=== PATIENT | male | born 1975 | race Two or more races ===

== ENCOUNTER 2025-08-14 16:56 | Emergency (ER) | payer MEDICARE, MEDICAID ==
[~2025-08-14] VITALS: Ht 170.2 cm; Wt 98.8 kg
[2025-08-14 16:59] VITALS: BP 143/91; PULSE 105; RESP 18; TEMP 98.1; O2SAT 99
--- NOTE | 2025-08-14 17:19 | ED.PDOC ---
History of Present Illness HPI Comments This is a 50-year-old male who presents to the ED with a chief complaint of anxiety. Patient was just discharged from the hospital hours ago. Patient notes no further complaints at this time and otherwise denies further associated symptoms of chest pain, palpitations, fever, chills, dizziness, or weakness. Chief Complaint: General Weakness Time Seen by MD: 17:10 Reviewed Notes: Medications, Allergies Allergies: Coded Allergies: NO KNOWN ALLERGIES (Unverified , 08/14/25) Information Source: Patient Mode of Arrival: Ambulatory Severity: Mild Duration: Since onset Past Medical History PAST MEDICAL HISTORY: Unknown Surgical History: Unknown Social History Smoker: Unknown Alcohol: Unknown Drugs: Unknown Lives In: Assisted Care Constitutional: denies: chills, diaphoresis, fatigue, fever, malaise, sweats, weakness, others EENTM: denies: blurred vision, double vision, ear bleeding, ear discharge, ear drainage, ear pain, ear ringing, eye pain, eye redness, hearing loss, mouth pain, mouth swelling, nasal discharge, nose bleeding, nose congestion, nose pain, photophobia, tearing, throat pain, throat swelling, voice changes, others Respiratory: denies: cough, hemoptysis, orthopnea, SOB at rest, shortness of breath, SOB with excertion, stridor, wheezing, others Cardiovascular: denies: chest pain, dizzy spells, diaphoresis, Dyspnea on exertion, edema, irregular heart beat, left arm pain, lightheadedness, palpitations, PND, syncope, others Gastrointestinal: denies: abdomen distended, abdominal pain, blood streaked bowels, constipated, diarrhea, dysphagia, difficulty swallowing, hematemesis, melena, nausea, poor appetite, poor fluid intake, rectal bleeding, rectal pain, vomiting, others Genitourinary: denies: burning, dysuria, flank pain, frequency, hematuria, incontinence, penile discharge, penile sore, pain, testicle pain, testicle swelling, urgency, others Neurological: denies: dizziness, fainting, headache, left sided numbness, left sided weakness, numbness, paresthesia, pre-existing deficit, right sided numbness, right sided weakness, seizure, speech problems, tingling, tremors, weakness, others Musculoskeletal: denies: back pain, gout, joint pain, joint swelling, muscle pain, muscle stiffness, neck pain, others Integumetry: denies: bruises, change in color, change in hair/nails, dryness, laceration, lesions, lumps, rash, wounds, others Allergic/Immunocompromised: denies: Difficulty Healing, Frequent Infections, Hives, Itching, others Hematologic/Lymphatic: denies: anemia, blood clots, easy bleeding, easy bruising, swollen glands, others Endocrine: denies: excessive hunger, excessive sweating, excessive thirst, excessive urination, flushing, intolerance to cold, intolerance to heat, unexplained weight gain, unexplained weight loss, others Psychiatric: reports: anxiety; denies: bipolar disorder, depression, hopeless, panic disorder, schizophrenia, sleepless, suicidal, others All Other Systems: Reviewed and Negative Physical Exam General Appearance: Moderate Distress HEENT: Normal ENT Inspection, Pharynx Normal, TMs Normal Neck: Full Range of Motion, Non-Tender, Normal, Normal Inspection Respiratory: Chest Non-Tender, Lungs Clear, No Accessory Muscle Use, No Respiratory Distress, Normal Breath Sounds Cardiovascular: No Edema, No JVD, No Murmur, No Gallop, Normal Peripheral Pulses, Regular Rate/Rhythm Breast Exam: Deferred Gastrointestinal: No Organomegaly, Non Tender, No Pulsatile Mass, Normal Bowel Sounds, Soft Genitalia: Deferred Pelvic: Deferred Rectal: Deferred Extremities: No calf tenderness, Normal capillary refill, Normal inspection, Normal range of motion, Non-tender, No pedal edema Musculoskeletal : Apperance: Normal Neurologic: Alert, patrol sergeant II-XII nml as Tested, No Motor Deficits, Normal Affect, Normal Mood, No Sensory Deficits Cerebellar Function: Normal Reflexes: Normal Skin: Dry, Normal Color, Warm Peripheral Pulses: 3+ Radial (R), 3+ Radial (L) Lymphatic: No Adenopathy Was a procedure done? Was a procedure done?: No Differential Dx Considerations may include: Anxiety X-Ray, Labs, Meds, VS Vital Signs Date Time Temp Pulse Resp B/P (MAP) Pulse Ox O2 Delivery O2 Flow Rate FiO2 08/14/25 16:59 98.1 105 18 143/91 99 98.1 Patient alert. He is anxious. Was discharged today from this hospital. Vitals stable. Ambulating. No injuries. He does have psychiatric illness. Denies suicidal homicidal ideation. Saturation pristine on room air. He is tolerating diet. Explained to the patient. Was told to follow up with his primary care physician. Was told to come back if there is any problem. Time of 1ST Reevaluation: 17:18 Reevaluation 1ST: Improved Patient Education/Counseling: Diagnosis, Treatment Family Education/Counseling: No Family Present SEPSIS Sepsis Screen Date sepsis recognized/suspect: Aug 14, 2025 Time Sepsis recognized/suspect: 1700 Recent Procedure: No On Antibiotic Therapy: No Respiratory Rate >20: No Heart Rate >90: No Temp<36 C (96.8 F) or >38.3 C: No SBP <90 or MAP <65 mmHG: No New Acute Mental Status Change: No Is the patient on CPAP, BIPAP,: No Vital Signs Date Time Temp Pulse Resp B/P (MAP) Pulse Ox O2 Delivery O2 Flow Rate FiO2 08/14/25 16:59 98.1 105 18 143/91 99 98.1 Departure 1 Departure Time of Disposition: 17:21 Impression: Primary Impression: Anxiety Disposition: 01 HOME / SELF CARE / HOMELESS Condition: Good Discharged With: Self Critical Care Note Critical Care Time?: No Stability Stability form required: No Heart Score Heart Score: Heart Score Response (Comments) Value History N/A 0 EKG N/A 0 Age N/A 0 Risk Factors N/A 0 Troponin N/A 0 Total 0 I personally scribed for JACLYN STEPHENSON MD ([email or web address]) on 08/14/25 at 17:18. Electronically submitted by Rebecca Crum ([email or web address]). JACLYN STEPHENSON MD Aug 14, 2025 17:18
== END 2025-08-14 18:03 | disposition left against medical advice (07) ==
LOC: ER 16:56
DX: F41.9 Anxiety disorder, unspecified (principal); Z79.899 Other long term (current) drug therapy

== ENCOUNTER 2025-09-24 21:24 | Inpatient (IN) | payer MEDICARE, MEDICAID ==
[~2025-09-24] VITALS: Ht 170.2 cm; Wt 98.8 kg
--- NOTE | 2025-09-24 22:02 | ED.PDOC ---
History of Present Illness HPI Comments 50-year-old male who came to ER for mental health issues. Patient brought in dropped off ?by friends? caregivers? Patient on a wheelchair, unkempt and smells of urine and feces. Patient repeatedly says, "I need help", "I want to get better", I need to walk again". No further information could be taken from him Chief Complaint: Mental Health Time Seen by MD: 22:02 Reviewed Notes: Nurses Notes Allergies: Coded Allergies: NO KNOWN ALLERGIES (Unverified , 08/14/25) Information Source: Patient Mode of Arrival: Wheelchair Past Medical History PAST MEDICAL HISTORY: Unknown Surgical History: Unknown Family History Family History: Unknown Social History Smoker: Unknown Alcohol: Unknown Drugs: Unknown Lives In: Assisted Care Unable to Obtain due to: Altered Mental Status Physical Exam General Appearance: No Apparent Distress, Normal HEENT: Normal ENT Inspection, Pharynx Normal, TMs Normal Neck: Full Range of Motion, Non-Tender, Normal, Normal Inspection Respiratory: Chest Non-Tender, Lungs Clear, No Accessory Muscle Use, No Respiratory Distress, Normal Breath Sounds Cardiovascular: No Edema, No JVD, No Murmur, No Gallop, Normal Peripheral Pulses, Regular Rate/Rhythm Breast Exam: Deferred Gastrointestinal: No Organomegaly, Non Tender, No Pulsatile Mass, Normal Bowel Sounds, Soft Genitalia: Deferred Pelvic: Deferred Rectal: Deferred Extremities: No calf tenderness, Normal capillary refill, Normal inspection, Normal range of motion, Non-tender, No pedal edema Musculoskeletal : Apperance: Normal Neurologic: Alert, assistant county attorney II-XII nml as Tested, No Motor Deficits, Normal Affect, Normal Mood, No Sensory Deficits Cerebellar Function: Normal Reflexes: Normal Skin: Dry, Normal Color, Warm Lymphatic: No Adenopathy Was a procedure done? Was a procedure done?: No Differential Dx Considerations may include: Anxiety, depression, failure to thrive X-Ray, Labs, Meds, VS Vital Signs Date Time Temp Pulse Resp B/P (MAP) Pulse Ox O2 Delivery O2 Flow Rate FiO2 09/24/25 21:31 98.7 82 18 128/77 97 98.7 Lab Test 09/24/25 21:58 Range/Units White Blood Count 10.7 4.4-10.8 10^3/uL Red Blood Count 5.10 4.5-5.90 10^6/uL Hemoglobin 14.3 13.5-17.5 g/dL Hematocrit 43.4 41.0-53.0 % Mean Corpuscular Volume 85.1 80.0-100.0 fL Mean Corpuscular Hemoglobin 28.1 28.0-32.0 pg Mean Corpuscular Hemoglobin Concent 33.0 32.0-36.0 g/dL Red Cell Distribution Width 15.2 H 11.8-14.3 % Platelet Count 278 140-450 10^3/uL Mean Platelet Volume 8.1 6.9-10.8 fL Neutrophils (%) (Auto) 70.5 37.0-80.0 % Lymphocytes (%) (Auto) 18.6 10.0-50.0 % Monocytes (%) (Auto) 9.3 0.0-12.0 % Eosinophils (%) (Auto) 1.1 0.0-7.0 % Basophils (%) (Auto) 0.5 0.0-2.0 % Neutrophils # (Auto) 7.6 1.6-8.6 10 ^3/uL Lymphocytes # (Auto) 2.0 0.4-5.4 10 ^3/uL Monocytes # (Auto) 1.0 0-1.3 10 ^3/uL Eosinophils # (Auto) 0.1 0-0.8 10 ^3/uL Basophils # (Auto) 0.1 0-0.2 10 ^3/uL Nucleated Red Blood Cells 0.0 % Sodium Level 137 136-145 mmol/L Potassium Level 4.3 3.5-5.1 mmol/L Chloride Level 104 98-107 mmol/L Carbon Dioxide Level 26 20-31 mmol/L Anion Gap 7 5-15 Blood Urea Nitrogen 10 9-23 mg/dL Creatinine 0.86 0.700-1.30 mg/dL Glomerular Filtration Rate Calc 107 >90 mL/min BUN/Creatinine Ratio 11.6 10.0-20.0 Serum Glucose 157 H 74-106 mg/dL Calcium Level 9.2 8.7-10.4 mg/dL Time of 1ST Reevaluation: 21:56 Reevaluation 1ST: Unchanged Patient Education/Counseling: Diagnosis, Treatment, Prognosis, Need For Follow Up Family Education/Counseling: No Family Present Comments pt appears unkempt, disheveled and confused. he reports that he wants to get better and that he cannot walk, but on exam, he has no pain, no signs of injuries, with normal ROM, and he walked. however, he was dropped off by someone for confusion. pt is confused. pt will be admitted for encephalopathy SEPSIS Sepsis Screen Date sepsis recognized/suspect: Sep 24, 2025 Time Sepsis recognized/suspect: 2136 Recent Procedure: No On Antibiotic Therapy: No Respiratory Rate >20: No Heart Rate >90: No Temp<36 C (96.8 F) or >38.3 C: No SBP <90 or MAP <65 mmHG: No New Acute Mental Status Change: No Is the patient on CPAP, BIPAP,: No Physician Orders Urinalysis (09/24/25 21:50) Allergies (09/25/25 02:22) Code Status (09/25/25 02:22) Oxygen Per Hour (09/25/25 02:22) Hydrocodone-Acet 5/325mg Tab ([place] 5/32 (09/25/25 02:30) Ondansetron Hcl (Zofran) (09/25/25 02:30) Docusate Sodium Capsule (Colace Capsule) (09/25/25 02:30) Complete Blood Count (09/26/25 04:00) Comprehensive Metabolic Panel (09/26/25 04:00) Cardiac Diet-2gna,Lofat,Lochol (09/25/25 Breakfast) Condition: Serious (09/25/25 02:22) Acetaminophen Tablet (Tylenol Tablet) (09/25/25 02:30) Bedrest With Bathroom Privileg (09/25/25 02:22) Sequential Compression Device (09/25/25 ) * Apartment Coordinator Consult (09/25/25 ) Vital Signs Date Time Temp Pulse Resp B/P (MAP) Pulse Ox O2 Delivery O2 Flow Rate FiO2 09/24/25 21:31 98.7 82 18 128/77 97 98.7 Laboratory Tests Test 09/24/25 21:58 White Blood Count 10.7 10^3/uL (4.4-10.8) Departure 1 Departure Time of Disposition: 01:27 Impression: Primary Impression: Encephalopathy Disposition: ADMITTED INPATIENT Admit to: Med Surg Condition: Stable Discharged With: Self Critical Care Note Critical Care Time?: No Stability Stability form required: No Heart Score Heart Score: Heart Score Response (Comments) Value History N/A 0 EKG N/A 0 Age N/A 0 Risk Factors N/A 0 Troponin N/A 0 Total 0 I personally scribed for DEN SARAVIA MD ([facility]) on 09/24/25 at 22:02. Electronically submitted by Perry Jerome ([facility] I personally scribed for DEN [facility]IA [facility] ([facility] on 09/24/25 at 22:32. Electronically submitted by Perry Jerome ([facility]). DEN SARAVIA MD Sep 24, 2025 22:02
[2025-09-24 22:19] LABS: Hematocrit 43.4 % (41.0-53.0); Hemoglobin 14.3 g/dL (13.5-17.5); Mean Corpuscular Hemoglobin 28.1 pg (28.0-32.0); Mean Corpuscular Volume 85.1 fL (80.0-100.0); Nucleated Red Blood Cells % 0.0 %
[2025-09-24 22:25] LABS: Chloride 104 mmol/L (98-107); Potassium 4.3 mmol/L (3.5-5.1); Sodium 137 mmol/L (136-145)
[2025-09-24 22:26] LABS: Calcium 9.2 mg/dL (8.7-10.4)
[2025-09-24 22:31] LABS: BUN/Creatinine Ratio 11.6 (10.0-20.0); Blood Urea Nitrogen 10 mg/dL (9-23)
[2025-09-24 22:39] LABS: Glucose 157 mg/dL (74-106)
[2025-09-24 23:23] LABS: Anion Gap 7 (5-15); Carbon Dioxide 26 mmol/L (20-31)
[2025-09-25] MEDS ORDERED: HYDROcodone-ACET 5/325MG TAB PO PRN (02:30)
[2025-09-25] MEDS ORDERED: DOCUSATE SOD 100 MG CAP PO PRN (02:30)
[2025-09-25] MEDS ORDERED: ONDANSETRON HCL 4 MG/2 ML VIAL IV PRN (02:30)
[2025-09-25] MEDS ORDERED: ACETAMINOPHEN 325 MG TAB PO PRN (02:30)
--- NOTE | 2025-09-25 05:25 | DVHHP2 ---
History of Present Illness Reason for Visit: Generalized weakness History of Present Illness The patient is a 50-year-old male with unknown past medical history presented to [facility] ED for evaluation of generalized weakness. The patient noted to be mental health issues, who was dropped off by a friend on a wheelc hair, unkempt, hopelessness, smells of urine and feces.Patient repeatedly says, "I need help", "I want to get better", I need to walk again". No further information could be taken from him given altered mental status. Patient was seen and evaluated in the ED, laboratory data shows WBC 10.7, platelets 278, sodium 137, potassium 4.3, BUN 10, creatinine 0.86, GFR 107, glucose 157, judi cium 9.2, blood pressure 128/77, heart rate 82, temperature 98.7 F, O2 saturation 97% on room air. Patient was admitted for social service evaluation and medical management. Past Medical History Unobtainable Past Surgical History Unobtainable Family History Reviewed, noncontributory to the management of this case. Past Social History Assisted Care living Review of Systems Constitutional: Yes: Weakness, Other (Unkempt); No: Fever, Chills, Sweats, Malaise Eyes: No: Pain, Vision change, Conjunctivae inflammation, Eyelid inflammation, Other, Redness ENT: No: Ear pain, Ear discharge, Nose pain, Nose discharge, Nose congestion, Mouth pain, Mouth swelling, Throat pain, Throat swelling, Other Respiratory: No: Cough, Dry, Shortness of breath, SOB with excertion, Wheezing, Hemoptysis, Pleuritic Pain, Sputum, Wheezing, Other Cardiovascular: No: Chest Pain, Palpitations, Orthopnea, Paroxysmal Noc. Dys pnea, Edema, Lt Headedness, Other Gastrointestinal: No: Nausea, Vomiting, Abdominal Pain, Diarrhea, Constipation, Melena, Hematochezia, Other Genitourinary: No Dysuria, No Frequency, No Incontinence, No Hematuria, No Retention, No Other Musculoskeletal: No: other, neck pain, shoulder pain, arm pain, back pain, hand pain, leg pain, foot pain Skin: No: Rash, Lesions, Jaundice, Bruising, Other Neurological: No: Weakness, Numbness, Incoordination, Change in speech, Confusion, Seizures, Other Allergies: Coded Allergies: NO KNOWN ALLERGIES (Unverified , 08/14/25) Medications Current Medications Medications Dose Ordered Sig/Wolf Route Start Time Stop Time Status Last Admin Dose Admin Acetaminophen/ Hydrocodone Bitart 1 tab Q4HP PRN PO 09/25/25 02:30 Ondansetron HCl 4 mg Q4HP PRN IV 09/25/25 02:30 Docusate Sodium 100 mg BIDPRN PRN PO 09/25/25 02:30 Acetaminophen 650 mg Q6HP PRN PO 09/25/25 02:30 Exam Vital Signs Vital Signs Date Time Temp Pulse Resp B/P (MAP) Pulse Ox O2 Delivery O2 Flow Rate FiO2 09/24/25 21:31 98.7 82 18 128/77 97 98.7 General Appearance: Alert, Cooperative, No acute distress, Other (Oriented x1) HEENT: Atraumatic, PERRLA, EOMI, Mucous membr. moist/pink Respiratory: Normal air movement Cardiovascular: Regular rate, Normal S1, Normal S2, No murmurs Abdominal: Normal bowel sounds, Soft, No tenderness, No hepatospenomegaly, No masses Extremities: No clubbing, No cyanosis, No edema, Normal pulses, No tenderness/swelling Skin: No rashes, No significant lesion Neuro: Normal speech, Normal tone, Sensation intact, Cranial nerves 3-12 NL, Reflexes 2+, Other (Generalized weakness) Psych/Mental Status: Other (Altered mental status) Labs/Xrays Labs Test 09/24/25 21:58 Range/Units White Blood Count 10.7 4.4-10.8 10^3/uL Red Blood Count 5.10 4.5-5.90 10^6/uL Hemoglobin 14.3 13.5-17.5 g/dL Hematocrit 43.4 41.0-53.0 % Mean Corpuscular Volume 85.1 80.0-100.0 fL Mean Corpuscular Hemoglobin 28.1 28.0-32.0 pg Mean Corpuscular Hemoglobin Concent 33.0 32.0-36.0 g/dL Red Cell Distribution Width 15.2 H 11.8-14.3 % Platelet Count 278 140-450 10^3/uL Mean Platelet Volume 8.1 6.9-10.8 fL Neutrophils (%) (Auto) 70.5 37.0-80.0 % Lymphocytes (%) (Auto) 18.6 10.0-50.0 % Monocytes (%) (Auto) 9.3 0.0-12.0 % Eosinophils (%) (Auto) 1.1 0.0-7.0 % Basophils (%) (Auto) 0.5 0.0-2.0 % Neutrophils # (Auto) 7.6 1.6-8.6 10 ^3/uL Lymphocytes # (Auto) 2.0 0.4-5.4 10 ^3/uL Monocytes # (Auto) 1.0 0-1.3 10 ^3/uL Eosinophils # (Auto) 0.1 0-0.8 10 ^3/uL Basophils # (Auto) 0.1 0-0.2 10 ^3/uL Nucleated Red Blood Cells 0.0 % Sodium Level 137 136-145 mmol/L Potassium Level 4.3 3.5-5.1 mmol/L Chloride Level 104 98-107 mmol/L Carbon Dioxide Level 26 20-31 mmol/L Anion Gap 7 5-15 Blood Urea Nitrogen 10 9-23 mg/dL Creatinine 0.86 0.700-1.30 mg/dL Glomerular Filtration Rate Calc 107 >90 mL/min BUN/Creatinine Ratio 11.6 10.0-20.0 Serum Glucose 157 H 74-106 mg/dL Calcium Level 9.2 8.7-10.4 mg/dL SEPSIS Sepsis Screen Date sepsis recognized/suspect: Sep 24, 2025 Time Sepsis recognized/suspect: 2136 Recent Procedure: No On Antibiotic Therapy: No Respiratory Rate >20: No Heart Rate >90: No Temp<36 C (96.8 F) or >38.3 C: No SBP <90 or MAP <65 mmHG: No New Acute Mental Status Change: No Is the patient on CPAP, BIPAP,: No Physician Orders Urinalysis (09/24/25 21:50) Allergies (09/25/25 02:22) Code Status (09/25/25 02:22) Oxygen Per Hour (09/25/25 02:22) Hydrocodone-Acet 5/325mg Tab ([place] 32 (09/25/25 02:30) Ondansetron Hcl (Zofran) (09/25/25 02:30) Docusate Sodium Capsule (Colace Capsule) (09/25/25 02:30) Complete Blood Count (09/26/25 04:00) Comprehensive Metabolic Panel (09/26/25 04:00) Cardiac Diet-2gna,Lofat,Lochol (09/25/25 Breakfast) Condition: Serious (09/25/25 02:22) Acetaminophen Tablet (Tylenol Tablet) (09/25/25 02:30) Bedrest With Bathroom Privileg (09/25/25 02:22) Sequential Compression Device (09/25/25 ) * Valve Technician Consult (09/25/25 ) Admit (09/25/25 05:24) Nitroglycerin Sublingual (Ntrostat Subli (09/25/25 05:30) Morphine Sulfate Injection (09/25/25 05:30) Stat Ekg For Chest Pain (09/25/25 05:24) Notify Md Of Changes From Base (09/25/25 05:24) Author For 24 Hours (09/25/25 05:24) Emergency Dysrhythmia Protocol (09/25/25 05:24) Rhythm Strips Once Every Shift (09/25/25 05:24) Oxygen By Nasal Cannula (09/25/25 05:24) Vital Signs Date Time Temp Pulse Resp B/P (MAP) Pulse Ox O2 Delivery O2 Flow Rate FiO2 09/24/25 21:31 98.7 82 18 128/77 97 98.7 Laboratory Tests Test 09/24/25 21:58 White Blood Count 10.7 10^3/uL (4.4-10.8) Assessment/Plan Assessment/Plan Altered mental status Poor personal hygiene Generalized weakness Plan 1. Admit to telemetry unit 2. Breathing treatment 3. Pain control management 4. Management of fluids and electrolytes 5. Consultation for hospitalist/social service 6. Diagnostic tests chest x-ray 7. DVT prophylaxis-on SCDs 8. Repeat labs CBC, BMP in a.m. 9. Continue with current medical management 10. Treatment plan discussed with patient and RN. Patient verbalized understanding. Plan discussed with: Patient, Other (RN) My Orders Orders - SOFIA ARSHAD DNP Procedure Category Date Status Time Allergies JOHNSON 09/25/25 In Process 02:22 Code Status CODE 09/25/25 Transmitted 02:22 Oxygen Per Hour RT 09/25/25 Transmitted 02:22 Hydrocodone-Acet PHA 09/25/25 In Process 5/325mg Tab ([place] 02:30 Ondansetron Hcl PHA 09/25/25 In Process (Zofran) 02:30 Docusate Sodium PHA 09/25/25 In Process Capsule (Colace 02:30 Complete Blood Count LAB 09/26/25 Verified 04:00 Comprehensive LAB 09/26/25 Verified Metabolic Panel 04:00 Cardiac DIET 09/25/25 Transmitted Diet-2gna,Lofat,Lochol Breakfast Condition: Serious JOHNSON 09/25/25 In Process 02:22 Acetaminophen Tablet PHA 09/25/25 In Process (Tylenol Tablet) 02:30 Bedrest With Bathroom JOH[place]ON 09/25/25 In Process Privileg 02:22 Sequential JOH[place]ON 09/25/25 In Process Compression Device * Valve Technician CONS 09/25/25 Transmitted Consult Admit ADMIT 09/25/25 Verified 05:24 Nitroglycerin [facility] 09/25/25 Verified Sublingual (Ntrostat 05:30 Morphine Sulfate [facility] 09/25/25 Verified Injection 05:30 Stat Ekg For Chest [facility] 09/25/25 Verified Pain 05:24 Notify Md Of Changes [facility] 09/25/25 Verified From Base 05:24 Author For [facility] 09/25/25 Verified 24 Hours 05:24 Emergency Dysrhythmia [facility] 09/25/25 Verified Protocol 05:24 Rhythm Strips Once [facility] 09/25/25 Verified Every Shift 05:24 Oxygen By Nasal RT 09/25/25 Verified Cannula 05:24 Problem List: (1) Altered mental status (2) Poor personal hygiene (3) Generalized weakness Date of Service: Sep 25, 2025 Billing Provider: SOFIA ARSHAD DNP Common Visit Codes: [id number] INP/OBS CARE (HIGH) SOFIA ARSHAD DNP Sep 25, 2025 05:25
[2025-09-25] MEDS ORDERED: NITROGLYCERIN 0.4 MG SL TAB SL PRN (05:30)
[2025-09-25] MEDS ORDERED: MORPHINE SULFATE INJ 2 MG/ml SYRG IV PRN (05:30)
[2025-09-25 06:06] LABS: Hematocrit 43.6 % (41.0-53.0); Hemoglobin 14.3 g/dL (13.5-17.5); Mean Corpuscular Hemoglobin 28.0 pg (28.0-32.0); Mean Corpuscular Volume 85.4 fL (80.0-100.0); Nucleated Red Blood Cells % 0.1 %
[2025-09-25 06:10] LABS: Chloride 105 mmol/L (98-107); Potassium 4.4 mmol/L (3.5-5.1); Sodium 138 mmol/L (136-145)
[2025-09-25 06:11] LABS: Anion Gap 5 (5-15); Carbon Dioxide 28 mmol/L (20-31)
[2025-09-25 06:12] LABS: Calcium 9.4 mg/dL (8.7-10.4)
[2025-09-25 06:17] LABS: BUN/Creatinine Ratio 13.6 (10.0-20.0); Blood Urea Nitrogen 12 mg/dL (9-23); Glucose 242 mg/dL (74-106)
--- NOTE | 2025-09-25 06:35 | DVH ---
CHEST RADIOGRAPH Indication: Weakness Technique: Single frontal view of the chest was obtained COMPARISON: XY CHEST XRAY 1 VIEW on DOS: 07/28/25, XY CHEST PORTABLE on DOS: 05/05/25, XY CHEST PORTABLE on DOS: 03/31/25, XY CHEST PORTABLE on DOS: 03/18/25, XY CHEST PORTABLE on DOS: 03/06/25 FINDINGS: Lines and Tubes: None Lungs: Mild diffuse increased prominence of the pulmonary vasculature. Pleura: No effusion. No pneumothorax. Cardiomediastinal contours: Unremarkable Bones: Unremarkable IMPRESSION: 1. Mild pulmonary vascular congestion.
[2025-09-25 07:44] VITALS: BP 148/92; PULSE 87; RESP 17; TEMP 98.3; O2SAT 96
[2025-09-25 08:26] LABS: Urine Protein, UAD 1+ (Negative)
== END 2025-09-25 08:24 | disposition left against medical advice (07) | DRG 72 ==
LOC: ER 21:24 → OVERFLOW 09-25 05:24
PROVIDERS: ADMIT Nurse Practitioner Family; ATTEND Nurse Practitioner Family
DX: G93.40 Encephalopathy, unspecified (principal); R53.1 Weakness; Z53.29 Procedure and treatment not carried out because of patient's decision for other reasons
CPT/HCPCS: 36415; 71045; 80048; 81001; 83036; 85025; G0378

== ENCOUNTER 2025-10-06 15:33 | Emergency (ER) | payer MEDICARE, MEDICAID ==
[~2025-10-06] VITALS: Ht 182.9 cm; Wt 110.0 kg
[2025-10-06 15:35] VITALS: BP 128/82; PULSE 102; RESP 16; TEMP 98.2; O2SAT 98
--- NOTE | 2025-10-06 16:01 | ED.PDOC ---
History of Present Illness HPI Comments 50-year-old male who presents to the ED for chief complaint of fall injury . Patient was discharged earlier this afternoon after being seen in the ED for fall injury and presents back to the ED and is noted belligerent and abusive to ED staff Patient otherwise noted to be verbally combative with staff and noted to be screaming expletives. Patient otherwise denies any symptoms at this time Time Seen by MD: 15:58 Reviewed Notes: Medications, Allergies Allergies: Coded Allergies: NO KNOWN ALLERGIES (Unverified , 08/14/25) Information Source: Patient Mode of Arrival: Ambulatory Past Medical History PAST MEDICAL HISTORY: Unknown Surgical History: Unknown Family History Family History: Unknown Social History Smoker: Unknown Alcohol: Unknown Drugs: Unknown Lives In: Assisted Care Constitutional: denies: chills, diaphoresis, fatigue, fever, malaise, sweats, weakness, others EENTM: denies: blurred vision, double vision, ear bleeding, ear discharge, ear drainage, ear pain, ear ringing, eye pain, eye redness, hearing loss, mouth pain, mouth swelling, nasal discharge, nose bleeding, nose congestion, nose pain, photophobia, tearing, throat pain, throat swelling, voice changes, others Respiratory: denies: cough, hemoptysis, orthopnea, SOB at rest, shortness of breath, SOB with excertion, stridor, wheezing, others Cardiovascular: denies: chest pain, dizzy spells, diaphoresis, Dyspnea on exertion, edema, irregular heart beat, left arm pain, lightheadedness, palpitations, PND, syncope, others Gastrointestinal: denies: abdomen distended, abdominal pain, blood streaked bowels, constipated, diarrhea, dysphagia, difficulty swallowing, hematemesis, melena, nausea, poor appetite, poor fluid intake, rectal bleeding, rectal pain, vomiting, others Genitourinary: denies: burning, dysuria, flank pain, frequency, hematuria, incontinence, penile discharge, penile sore, pain, testicle pain, testicle swelling, urgency, others Neurological: denies: dizziness, fainting, headache, left sided numbness, left sided weakness, numbness, paresthesia, pre-existing deficit, right sided numbness, right sided weakness, seizure, speech problems, tingling, tremors, weakness, others Musculoskeletal: denies: back pain, gout, joint pain, joint swelling, muscle pain, muscle stiffness, neck pain, others Integumetry: denies: bruises, change in color, change in hair/nails, dryness, laceration, lesions, lumps, rash, wounds, others Allergic/Immunocompromised: denies: Difficulty Healing, Frequent Infections, Hives, Itching, others Hematologic/Lymphatic: denies: anemia, blood clots, easy bleeding, easy bruising, swollen glands, others Endocrine: denies: excessive hunger, excessive sweating, excessive thirst, excessive urination, flushing, intolerance to cold, intolerance to heat, unexplained weight gain, unexplained weight loss, others Psychiatric: denies: anxiety, bipolar disorder, depression, hopeless, panic disorder, schizophrenia, sleepless, suicidal, others All Other Systems: Reviewed and Negative Physical Exam General Appearance: Other (Patient noted to be belligerent screaming at staff, screaming expletives) HEENT: Normal ENT Inspection, Pharynx Normal, TMs Normal Neck: Full Range of Motion, Non-Tender, Normal, Normal Inspection Respiratory: Chest Non-Tender, Lungs Clear, No Accessory Muscle Use, No Respiratory Distress, Normal Breath Sounds Cardiovascular: No Edema, No JVD, No Murmur, No Gallop, Normal Peripheral Pulses, Regular Rate/Rhythm Breast Exam: Deferred Gastrointestinal: No Organomegaly, Non Tender, No Pulsatile Mass, Normal Bowel Sounds, Soft Genitalia: Deferred Pelvic: Deferred Rectal: Deferred Extremities: No calf tenderness, Normal capillary refill, Normal inspection, Normal range of motion, Non-tender, No pedal edema Musculoskeletal : Apperance: Normal Neurologic: Alert, preconstruction manager II-XII nml as Tested, No Motor Deficits, Normal Affect, Normal Mood, No Sensory Deficits Cerebellar Function: Normal Reflexes: Normal Skin: Dry, Normal Color, Warm Lymphatic: No Adenopathy Was a procedure done? Was a procedure done?: No X-Ray, Labs, Meds, VS Vital Signs Date Time Temp Pulse Resp B/P (MAP) Pulse Ox O2 Delivery O2 Flow Rate FiO2 10/06/25 15:35 98.2 102 16 128/82 98 98.2 Time of 1ST Reevaluation: 16:00 Reevaluation 1ST: Unchanged Patient Education/Counseling: Diagnosis, Treatment Family Education/Counseling: No Family Present SEPSIS Sepsis Screen Date sepsis recognized/suspect: Oct 06, 2025 Time Sepsis recognized/suspect: 1535 Recent Procedure: No On Antibiotic Therapy: No Respiratory Rate >20: No Heart Rate >90: Yes Temp<36 C (96.8 F) or >38.3 C: No SBP <90 or MAP <65 mmHG: No New Acute Mental Status Change: No Is the patient on CPAP, BIPAP,: No Vital Signs Date Time Temp Pulse Resp B/P (MAP) Pulse Ox O2 Delivery O2 Flow Rate FiO2 10/06/25 15:35 98.2 102 16 128/82 98 98.2 Critical Care Note Critical Care Time?: No Stability Stability form required: No Heart Score Heart Score: Heart Score Response (Comments) Value History N/A 0 EKG N/A 0 Age N/A 0 Risk Factors N/A 0 Troponin N/A 0 Total 0 I personally scribed for DANIELA RAND MD ([email or web address]) on 10/06/25 at 16:01. Electronically submitted by Lila العلي ([facility]). DANIELA RAND MD Oct 06, 2025 16:01
== END 2025-10-06 15:56 | disposition left against medical advice (07) ==
LOC: EDBD 15:33 → ER 15:33
DX: M79.642 Pain in left hand (principal)